=== PATIENT | female | born 1995 | race Caucasian/White ===

== ENCOUNTER 2020-04-22 19:27 | Emergency (ER) | payer SELFPAY ==
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
[2020-04-22] MEDS ORDERED: IBUPROFEN 400 MG TAB ONE (20:25)
[2020-04-22] MEDS ORDERED: ACETAMINOPHEN 325 MG TABLET ONE (20:25)
[2020-04-22] MEDS ORDERED: AMOX/K CLAV 875 MG TAB ONE (20:25)
[2020-04-22 20:54] VITALS: BP 130/88; O2SAT 100
== END 2020-04-22 20:28 | disposition home or self-care (01) ==
LOC: ER 19:27
DX: K08.89 Other specified disorders of teeth and supporting structures (principal); R51.9 Headache, unspecified
CPT/HCPCS: 99283